=== PATIENT | male | born 1945 | race Caucasian/White ===

== ENCOUNTER 2017-04-08 19:23 | Emergency (ER) | payer MEDICARE ==
[~2017-04-08] VITALS: Ht 172.7 cm; Wt 83.5 kg
[2017-04-08 21:47] VITALS: BP 157/72
== END 2017-04-08 21:49 | disposition home or self-care (01) ==
LOC: ED 21:40
DX: N45.1 Epididymitis (principal); N30.00 Acute cystitis without hematuria
CPT/HCPCS: 76870; 81001; 87077; 87086; 87186; 99285

== ENCOUNTER 2017-04-27 11:32 | Emergency (ER) | payer MEDICARE ==
[~2017-04-27] VITALS: Ht 177.8 cm; Wt 83.6 kg
[2017-04-27 11:45] VITALS: BP 133/77
== END 2017-04-27 13:19 | disposition home or self-care (01) ==
LOC: ED 13:13
DX: J00 Acute nasopharyngitis [common cold] (principal)
CPT/HCPCS: 71020; 99284